=== PATIENT | male | born 2000 | race Caucasian/White ===

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

== ENCOUNTER 2021-01-27 18:39 | Inpatient (IN) | payer MEDICAID ==
[~2021-01-27] VITALS: Ht 170.2 cm; Wt 119.7 kg
[2021-01-27 18:49] VITALS: BP 142/87
[2021-01-27 20:59] LABS: ABSOLUTE BASOPHILS 0.2 thou/uL (0.0-0.2); ABSOLUTE EOSINOPHILS 0.4 thou/uL (0.0-0.7); ABSOLUTE LYMPHOCYTES 3.2 thou/uL (0.8-5.3); ABSOLUTE MONOCYTES 1.6 thou/uL (0.0-1.2); ABSOLUTE NEUTROPHILS 20.1 thou/uL (1.6-8.1); BASOPHILS 0.8 %; EOSINOPHILS 1.4 %; HEMATOCRIT 44.9 % (42.0-52.0); HEMOGLOBIN 15.4 gm/dL (14.0-18.0); LYMPHOCYTES 12.4 %; MCH 30.4 pg (26.0-34.0); MCHC 34.4 g/dL (28.0-37.0); MCV 88.4 fL (80.0-100.0); MONOCYTES 6.3 %; MPV 7.1 fl. (7.2-11.1); NUCLEATED RBCS 0 /100WBC; PLATELET COUNT* 309 thou/uL (150-400); POLYS 79.1 %; RBC 5.08 mil/uL (4.50-6.00); RDW-CV 13.6 % (10.5-14.5); WBC 25.5 thou/uL (4.0-11.0)
[2021-01-27 21:10] LABS: CALCIUM 9.5 mg/dL (8.5-10.1); POTASSIUM 3.7 mmol/L (3.5-5.1)
[2021-01-27 21:15] LABS: ALBUMIN 4.1 g/dL (3.4-5.0); TOTAL BILIRUBIN 0.4 mg/dL (<0.1-1.0); TOTAL PROTEIN 8.3 g/dL (6.4-8.2)
[2021-01-27 21:51] LABS: PLATELET ESTIMATE ADEQUATE
[2021-01-27 21:52] LABS: TOXIC GRANULATION Occasional
[2021-01-27 22:42] LABS: BE -2.4 mmol/L (-2 to +3); PCO2 34.5 mmHg (35.0-45.0); PO2 60.6 mmHg (75.0-100.0); pH 7.411 (7.340-7.450)
[2021-01-27 23:41] VITALS: BP 122/59
[2021-01-28 00:02] VITALS: BP 131/59
[2021-01-28 03:51] VITALS: BP 136/61
[2021-01-28 07:40] VITALS: BP 142/83
[2021-01-28 10:12] LABS: HEMATOCRIT 43.9 % (42.0-52.0); HEMOGLOBIN 14.5 gm/dL (14.0-18.0); MCH 29.5 pg (26.0-34.0); MCV 89.3 fL (80.0-100.0); MPV 7.1 fl. (7.2-11.1); NUCLEATED RBCS 0 /100WBC; PLATELET COUNT* 301 thou/uL (150-400); RBC 4.91 mil/uL (4.50-6.00); RDW-CV 13.5 % (10.5-14.5); WBC 23.3 thou/uL (4.0-11.0)
[2021-01-28 10:33] LABS: ALBUMIN 3.4 g/dL (3.4-5.0); CALCIUM 9.1 mg/dL (8.5-10.1); CREATININE 0.8 mg/dL (0.6-1.3); POTASSIUM 4.4 mmol/L (3.5-5.1); TOTAL BILIRUBIN 0.4 mg/dL (<0.1-1.0); TOTAL PROTEIN 7.6 g/dL (6.4-8.2)
[2021-01-28 11:41] LABS: ABSOLUTE LYMPHOCYTES 1.4 thou/uL (0.8-5.3); ABSOLUTE MONOCYTES 0.5 thou/uL (0.0-1.2); ABSOLUTE NEUTROPHILS 21.4 thou/uL (1.6-8.1)
[2021-01-28 11:42] LABS: PLATELET ESTIMATE ADEQUATE
[2021-01-28 17:10] LABS: URINE BILIRUBIN NEGATIVE (Negative); URINE BLOOD NEGATIVE (Negative); URINE CLARITY CLEAR; URINE COLOR YELLOW; URINE GLUCOSE-RANDOM 2+ (Negative); URINE KETONES TRACE (Negative); URINE LEUKOCYTES-REFLEX NEGATIVE (Negative); URINE NITRITE-REFLEX NEGATIVE (Negative); URINE PROTEIN NEGATIVE (Negative); URINE SPECIFIC GRAVITY 1.025 (1.005-1.030); URINE UROBILINOGEN 0.2 E.U./dl (0.2-1.0)
[2021-01-28 17:21] LABS: AMP/METHAMP Negative (Negative); BARBITURATES Negative (Negative); BENZODIAZEPINES Negative (Negative); COCAINE Negative (Negative); METHADONE Negative (Negative); OPIATES POSITIVE (Negative); PCP Negative (Negative); THC Negative (Negative)
[2021-01-28 18:26] VITALS: BP 130/68
--- NOTE | 2021-01-28 19:06 | CON ---
[address] [address] CONSULTATION Name: DAMIEN BRAXTON I Room: [address] IN M.R.#: [id number] Admission: 01/27/21 Attend Phys: J Carlos Hughes Discharge: Date of : 00 Report #: [id number] THIS REPORT FOR: cc: TERENCE - No family physician/PCP FAM - No family physician/PCP Jesus Webb MD ~ DATE OF CONSULTATION: 01/28/2021 REQUESTING PHYSICIAN: Jacob Ramirez MD INDICATION FOR CONSULTATION: Shortness of breath. HISTORY OF PRESENT ILLNESS: A 20-year-old gentleman. He has a history of autism. His mother also describes that he has a slowly progressive demyelinating disorder. The patient is morbidly obese with a body mass index of 41 and therefore likely has previously undiagnosed underlying obstructive sleep apnea, but other than this patient is not known to have a respiratory disease in the past. The patient's mother in fact is a speech therapist and she clearly describes that he does not have any history of aspiration. The patient has not been vaccinated for COVID-19. The patient is now presented with shortness of breath developing yesterday. The patient has also been nauseated and had 1 large vomitus yesterday. There was no blood in the vomitus. He has had some cough, but there is no sputum. There are no upper respiratory complaints described. There is no increase in swelling of lower extremities or calf pain. He is not reported to have had abdominal pain, diarrhea or constipation. Upon arrival, the patient is reported to be significantly tachycardic with a heart rate of 129. He was also tachypneic with respiratory rate around 39. He has been on oxygen, which has now been taken off. It is, however, not fully apparent to me as to whether the patient in fact was hypoxemic. Currently, he is maintaining O2 saturation in the low 90s on room air. His heart rate and respiratory rate have now settled. He is not febrile at this time; however, he is noted to have significant leukocytosis and significant elevation in lactate level up to 3.2 is also noted. REVIEW OF SYSTEMS: For 12 points as obtained from the mother is negative except as mentioned above. The patient is not able to provide a review of system. PAST MEDICAL HISTORY: Autism. 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 SOCIAL HISTORY: There is no known history of smoking, ethanol abuse, [place] [address] CONSULTATION Name: DAMIEN BRAXTON I Room: [address]#: [id number] Admission: 01/27/21 Attend Phys: J Carlos Hughes Discharge: Date of : 00 Report #: [id number] CURRENT MEDICATIONS: List in [facility] reviewed. HOME MEDICATIONS: There are no known home medications. ALLERGIES: HE IS REPORTED TO HAVE HAD AN ALLERGY OR ADVERSE REACTION TO AMOXICILLIN. He, however, tolerated cephalosporins without problems. FAMILY HISTORY: Mother is a speech therapist. IMMUNIZATION HISTORY: He has not been vaccinated for COVID-19. PHYSICAL EXAMINATION: GENERAL: He is fully awake, is able to answer simple questions; however, is not able to provide any meaningful history. VITAL SIGNS: Has a pulse of 91 and a blood pressure of 142/83. He is saturating around 91-92%. He is not on supplemental oxygen. He does not appear to be in any distress. His respiratory rate is 18. He is afebrile with a temperature of 36.3. HEENT: Head is normocephalic and atraumatic. NECK: Does not show raised JVP. CHEST: Breath sounds are bilaterally equal. No added sounds. HEART: Regular. There is no murmur. ABDOMEN: Soft and nontender. EXTREMITIES: Lower extremities, trace edema, no calf tenderness. SKIN: Dry and intact. NEUROLOGIC: Moves all extremities bilaterally equally and spontaneously. No focal deficit identified. LABORATORY DATA: The patient's chest x-ray films as well as report are reviewed. He does have increase in interstitial markings. These are likely secondary to interstitial infiltrates. Pulmonary vascular congestion can also lead to this picture; however, it appears unlikely based on his clinical picture. Old scarring can also lead to this picture. The patient's lab work, which does show significant leukocytosis as well as elevated lactate in [employer] reviewed. He is noted to have significant hyperglycemia with a blood glucose elevated to 242. His BUN and creatinine are normal. His arterial blood gas shows mild hypoxemia with a pO2 of 61. There is also mild respiratory alkalosis and mild metabolic acidosis with a normal pH of 7.411. ASSESSMENT AND PLAN: 1. Shortness of breath. The likelihood is that the patient has systemic inflammatory response syndrome secondary to an infection. This could certainly be a viral infection such as COVID-19 or could be [place] [address] CONSULTATION Name: DAMIEN BRAXTON I Room: [address] IN [place]#: [id number] Admission: 01/27/21 Attend Phys: J Carlos Hughes Discharge: Date of : 00 Report #: [id number] The other possibility I considered is thromboembolism; however, at this point, this appears to be much less likely. We will continue to monitor the patient's respiratory status and O2 saturations closely. 2. Interstitial pulmonary infiltrates. I agree with treating him with Levaquin. I also agree with one dose of Solu-Medrol as ordered by Dr. Ramirez. In addition, I agree with checking COVID-19 PCR. COVID-19 antigen has come back negative. The likelihood is that we are dealing with an infectious process and the likelihood is that the infectious process is of respiratory origin. Other infectious etiologies can also lead to this picture. If possible, then I would suggest obtaining a urinalysis as well. I understand that the patient's limited cooperation would limit investigations. 3. Systemic inflammatory response syndrome. The chest x-ray findings are most likely secondary to interstitial infiltrates. Component of chronic changes will be possible. In the right clinical setting, pulmonary vascular congestion can lead to this picture; however, in this patient's case, this appears to be unlikely and therefore, I recommend continuing with IV fluids as currently ordered. We will continue to follow his lactate level as well as electrolytes and BUN and creatinine closely. 4. Hyperglycemia, insulin sliding scale. 5. Evaluation for thromboembolic phenomena, as I understand that several persons have to hold the patient down for blood work and overall my suspicion is also low, I have only ordered a D-dimer for tomorrow morning. If it is elevated, I will consider obtaining venous Dopplers. 6. Deep venous thrombosis prophylaxis, Lovenox. 7. Gastrointestinal prophylaxis, Protonix. 8. Clostridium difficile prophylaxis, Florastor. Thanks for this consultation. <ELECTRONICALLY SIGNED> By: Jesus Webb MD 01/28/21 [id number] Webb MD /nt
[2021-01-28 19:40] VITALS: BP 118/73
[2021-01-29 04:00] LABS: ABSOLUTE BASOPHILS 0.2 thou/uL (0.0-0.2); ABSOLUTE LYMPHOCYTES 3.6 thou/uL (0.8-5.3); ABSOLUTE MONOCYTES 1.9 thou/uL (0.0-1.2); ABSOLUTE NEUTROPHILS 23.5 thou/uL (1.6-8.1); BASOPHILS 0.5 %; HEMATOCRIT 43.2 % (42.0-52.0); HEMOGLOBIN 14.5 gm/dL (14.0-18.0); LYMPHOCYTES 12.4 %; MCHC 33.5 g/dL (28.0-37.0); MCV 89.5 fL (80.0-100.0); MONOCYTES 6.4 %; MPV 7.6 fl. (7.2-11.1); NUCLEATED RBCS 0 /100WBC; PLATELET COUNT* 317 thou/uL (150-400); POLYS 80.7 %; RBC 4.83 mil/uL (4.50-6.00); RDW-CV 13.5 % (10.5-14.5); WBC 29.1 thou/uL (4.0-11.0)
[2021-01-29 04:09] LABS: APTT 21.7 Seconds (25.0-31.3)
[2021-01-29 04:14] VITALS: BP 151/72
[2021-01-29 04:16] LABS: ALBUMIN 3.4 g/dL (3.4-5.0); CALCIUM 9.2 mg/dL (8.5-10.1); CREATININE 0.7 mg/dL (0.6-1.3); MAGNESIUM 2.1 mg/dL (1.8-2.4); POTASSIUM 4.8 mmol/L (3.5-5.1); TOTAL BILIRUBIN 0.2 mg/dL (<0.1-1.0); TOTAL PROTEIN 7.4 g/dL (6.4-8.2)
[2021-01-29 08:30] VITALS: BP 134/78
--- NOTE | 2021-01-29 16:02 | 2DMMODE ---
[place] [address] 2 D/M-MODE ECHOCARDIOGRAM Name: DAMIEN BRAXTON I Room: [address] IN .R.#: [id number] Admission: 01/27/21 Attend Phys: Brooke Pepper Discharge: Date of : 00 Date of Service: 01/29/21 1601 Report #: [id number] THIS REPORT FOR: cc: FAM - No family physician/PCP FAM - No family physician/PCP Khai Berrios MD [facility] ~ APPROVED REPORT Study performed: 01/29/2021 15:22:45 EXAM: Limited 2D Echocardiogram Patient Location: In-Patient Room #: [facility] Status: routine BSA: 2.28 Other Information Study Quality: Technically Difficult Technically limited study due to uncooperative patient. Indications Dyspnea Left Ventricle The left ventricle is normal size. There is normal LV segmental wall motion. There is normal left ventricular wall thickness. The left ventricular systolic function is normal. LVEF is 55-60%. This study is not technically sufficient to allow evaluation of the LV diastolic function. Right Ventricle Right ventricle is mildly dilated. The right ventricular systolic function is normal. Atria The left atrium size is normal. The right atrium size is normal. Aortic Valve The aortic valve is normal in structure. Mitral Valve The mitral valve is normal in structure. [address] [address] 2 D/M-MODE ECHOCARDIOGRAM Name: BRICE DAMIEN CERDA I Room: [address] IN M.R.#: [id number] Admission: 01/27/21 Attend Phys: Brooke Peppre Discharge: Date of : 00 Date of Service: 01/29/21 160 Report #: [id number] Tricuspid Valve The tricuspid valve is normal in structure. Great Vessels IVC is not well visualized. Pericardium There is no pericardial effusion. <Conclusion> The left ventricle is normal size. There is normal left ventricular wall thickness. The left ventricular systolic function is normal. LVEF is 55-60%. There is normal LV segmental wall motion. <ELECTRONICALLY SIGNED> By: Khai Berrios MD, FACC 01/29/211600 00 00 Khai Berrios MD, FACC /INF
[2021-01-29 17:12] VITALS: BP 118/78
[2021-01-29 20:00] VITALS: BP 132/83
[2021-01-30 08:00] VITALS: BP 114/79
[2021-01-30 09:59] LABS: ABSOLUTE BASOPHILS 0.1 thou/uL (0.0-0.2); ABSOLUTE EOSINOPHILS 0.6 thou/uL (0.0-0.7); ABSOLUTE LYMPHOCYTES 6.5 thou/uL (0.8-5.3); BASOPHILS 0.4 %; EOSINOPHILS 3.4 %; HEMOGLOBIN 15.7 gm/dL (14.0-18.0); LYMPHOCYTES 37.7 %; MCH 30.1 pg (26.0-34.0); MCHC 33.5 g/dL (28.0-37.0); MCV 89.9 fL (80.0-100.0); MONOCYTES 5.8 %; MPV 7.1 fl. (7.2-11.1); NUCLEATED RBCS 0 /100WBC; PLATELET COUNT* 376 thou/uL (150-400); POLYS 52.7 %; RBC 5.23 mil/uL (4.50-6.00); RDW-CV 13.8 % (10.5-14.5); WBC 17.2 thou/uL (4.0-11.0)
[2021-01-30 10:21] LABS: ALBUMIN 3.8 g/dL (3.4-5.0); CALCIUM 9.7 mg/dL (8.5-10.1); CREATININE 0.9 mg/dL (0.6-1.3); POTASSIUM 4.3 mmol/L (3.5-5.1); TOTAL BILIRUBIN 0.3 mg/dL (<0.1-1.0); TOTAL PROTEIN 7.8 g/dL (6.4-8.2)
[2021-01-30] MEDS ORDERED: LEVOFLOXACIN750 MG PO (11:27)
[2021-01-30 11:33] VITALS: BP 114/79
== END 2021-01-30 14:07 | disposition home or self-care (01) | DRG 871 ==
LOC: M.ERS 18:39 → M.2W 22:20 → M.TBA-ER 22:20 → M.2W 23:46
PROVIDERS: Internal Medicine; Internal Medicine Critical Care Medicine; Personal Emergency Response Attendant; Physician Assistant; ADMIT Internal Medicine; ATTEND Internal Medicine
DX: A41.9 Sepsis, unspecified organism (principal); J18.9 Pneumonia, unspecified organism; E87.2 Acidosis; R73.9 Hyperglycemia, unspecified; Z20.822 Contact with and (suspected) exposure to COVID-19; Z88.0 Allergy status to penicillin; Z23 Encounter for immunization